=== PATIENT | female | born 1955 | race African-American/Black ===

== ENCOUNTER 2019-03-27 20:03 | Inpatient (IN) ==
[2019-03-27] MEDS ORDERED: SODIUM CHLORIDE 0.9% 500 ML IV STA (20:27)
[2019-03-27] MEDS ORDERED: methylPREDNISolone SOD SUC 125 MG/2 ML VIAL IV STA (20:28)
[2019-03-27] MEDS ORDERED: ONDANSETRON 4 MG/2 ML VIAL IV STA (20:30)
[2019-03-27] MEDS ORDERED: MEPERIDINE 50 MG/1 ML VIAL IV STA (20:30)
[2019-03-27 20:44] LABS: Basophils % 0.2 % (0.0-0.8); Eosinophils # 0.1 10*3/uL (0.0-0.87); Eosinophils % 0.8 % (0.00-10.9); Hematocrit 27.2 VOL% (35.7-47.0); Hemoglobin 8.4 GM/DL (12.0-16.0); Immature Granulocytes % 1.1 %; Immature Granulocytes Absolute 0.15 #; Lymphocytes # 1.4 10*3/uL (1.4-4.0); Lymphocytes % 10.2 % (21.3-54.2); Mean Corpuscular HGB Conc 30.9 GM/DL (32-36); Mean Corpuscular Volume 60.9 FL (87-102); Mean Platelet Volume 8.4 FL (9.6-12.0); Monocytes % 8.1 % (1.7-12.7); NRBC # 0.02 10*3/uL; Neutrophils % 79.6 % (38.7-73.9); Platelet Count 686 T/CUMM (130-400); Red Blood Count 4.47 MC/CUMM (3.8-5.5); Red Cell Distribution Width 20.4 % (9.3-17.3); White Blood Count 13.9 T/CUMM (4-12)
[2019-03-27] MEDS ORDERED: MEPERIDINE 25 MG/1 ML VIAL ONE (20:44)
[2019-03-27 21:17] LABS: Alanine Aminotransferase 15 U/L (13-56); Albumin 2.6 G/DL (3.4-5.0); Alkaline Phosphatase 99 U/L (45-117); Aspartate Amino Transferase 10 U/L (0-37); Blood Urea Nitrogen 12 MG/DL (7-18); Calcium 9.2 MG/DL (8.5-10.1); Glucose 234 MG/DL (74-106); Osmolality,Calculated 282.7 MOS/KG (273-304); Total Protein 6.6 G/DL (6.4-8.3); Troponin I < 0.015 NG/ML (0.00-0.045)
[2019-03-27] MEDS ORDERED: KETOROLAC 30 MG/1 ML VIAL IV STA (22:19)
[2019-03-27 22:38] LABS: Apearance,Urine Slightly Hazy (Clear); Bacteria,Urine Occasional /HPF (Few); Bilirubin,Urine Negative (Negative); Blood, Urine Moderate mg/dL (Negative); Glucose,Urine (UA) Negative (Negative); Hyaline Casts,Urine 1 /LPF (0-3); Ketones,Urine Negative (Negative); Mucus,Urine Occasional /LPF (Occasional); Nitrite,Urine Negative (Negative); Protein,Urine Negative; RBC,Urine 14 /HPF (0-4); Squamous Epithelial Cell,Urine Occasional /HPF (0-10); Urine Color Yellow (Yellow); Urine Specific Gravity 1.009 (1.001-1.035); Urine Urobilinogen < 2.0 EU/DL (0.2-1.0); WBC,Urine 56 /HPF (0-6)
[2019-03-27 22:42] LABS: Barbiturates Screen,Urine Negative (Negative); Benzodiazepines Screen,Urine Negative (Negative); Cannabinoid Screen,Urine Negative (Negative); Opiate Screen,Urine Negative (Negative); Phencyclidine Screen,Urine Negative (Negative)
[2019-03-27] MEDS ORDERED: MORPHINE 4 MG/1 ML VIAL IV PRN (23:23)
[2019-03-27] MEDS ORDERED: GLUCAGON 1 MG VIAL IM PRN (23:23)
[2019-03-27] MEDS ORDERED: DEXTROSE 50% 25 GM/50 ML SYRINGE IV PRN (23:23)
[2019-03-27] MEDS ORDERED: ONDANSETRON 4 MG/2 ML VIAL IV PRN (23:23)
[2019-03-27] MEDS ORDERED: cefTRIAXone 2,000 MG in SYRINGE 1 EACH IV SCH (23:30)
[2019-03-27] MEDS ORDERED: LOPERAMIDE 2 MG CAPSULE PO PRN (23:31)
[2019-03-28] MEDS: cefTRIAXone 2,000 MG in SYRINGE 1 EACH IV SCH ×2 (01:18→23:34)
[2019-03-28] MEDS: SODIUM CHLORIDE 0.9% 1,000 ML IV SCH ×3 (01:18→19:40)
[2019-03-28] MEDS: FERROUS GLUCONATE 324 MG TABLET PO SCH ×3 (01:25→22:35)
[2019-03-28] MEDS: rOPINIRole 1 MG TABLET PO SCH ×2 (01:25→22:36)
[2019-03-28 05:20] LABS: Basophils % 0.1 % (0.0-0.8); Hemoglobin 7.2 GM/DL (12.0-16.0); Immature Granulocytes Absolute 0.11 #; Lymphocytes # 0.6 10*3/uL (1.4-4.0); Lymphocytes % 5.1 % (21.3-54.2); Mean Corpuscular HGB Conc 31.3 GM/DL (32-36); Mean Corpuscular Volume 61.3 FL (87-102); Mean Platelet Volume 8.6 FL (9.6-12.0); Monocytes % 0.9 % (1.7-12.7); Neutrophils % 92.9 % (38.7-73.9); Platelet Count 586 T/CUMM (130-400); Red Blood Count 3.75 MC/CUMM (3.8-5.5); Red Cell Distribution Width 20.1 % (9.3-17.3)
[2019-03-28 05:34] LABS: Calcium 8.6 MG/DL (8.5-10.1); Osmolality,Calculated 283.7 MOS/KG (273-304)
[2019-03-28 05:48] LABS: Anisocytosis 1+; Band Neutrophils 1 % (0-10); Lymphocytes 5 % (20-55); Myelocytes 1 %; Segmented Neutrophils 93 % (50-85); Total Cells Counted 100
[2019-03-28 05:49] LABS: Acanthocytes Few; Hypochromasia 1+; Ovalocytes Few; Platelet Estimate Adequate
[2019-03-28] MEDS ORDERED: SACCHAROMYCES BOULARDII 250 MG PO SCH (09:00)
[2019-03-28] MEDS: traMADol 50 MG TABLET PO PRN ×2 (09:08→18:31)
[2019-03-28] MEDS: FOLIC ACID 1 MG TABLET PO SCH (09:09)
[2019-03-28] MEDS: LOSARTAN 50 MG TABLET PO SCH (09:09)
[2019-03-28] MEDS: CHOLECALCIFEROL 5,000 UNIT TABLET PO SCH (09:09)
[2019-03-28] MEDS: CALCIUM (CARBONATE)/VITAMIN D 600 MG-400 UNIT TABLET PO SCH ×2 (09:09→09:20)
[2019-03-28] MEDS: ENOXAPARIN 40 MG/0.4 ML SYRINGE SUBCUT SCH (09:09)
[2019-03-28] MEDS: PANTOPRAZOLE 40 MG TABLET PO SCH (09:09)
[2019-03-28] MEDS: MONTELUKAST 10 MG TABLET PO SCH (09:09)
[2019-03-28] MEDS: METOPROLOL TARTRATE 25 MG TABLET PO SCH (09:10)
[2019-03-28] MEDS: predniSONE 10 MG TABLET PO SCH (09:10)
[2019-03-28] MEDS: INSULIN REGULAR 100 UNIT/ML SUBCUT SCH ×4 (09:13→22:39)
[2019-03-28] MEDS ORDERED: SODIUM CHLORIDE 0.9% 1,000 ML IV PRN (09:21)
[2019-03-28 09:41] LABS: Ferritin 139.2 ng/ml (8-252)
[2019-03-28 10:23] LABS: Folate 23.4 NG/ML (5.4-24.0)
[2019-03-28] MEDS ORDERED: FAMOTIDINE 20 MG TABLET PO PRN (14:34)
[2019-03-28] MEDS: IRON SUCROSE 200 MG in SODIUM CHLORIDE 0.9% 100 ML IV SCH (18:52)
[2019-03-28 19:12] LABS: Hematocrit 29.3 VOL% (35.7-47.0); Hemoglobin 9.1 GM/DL (12.0-16.0)
[2019-03-29] MEDS: SODIUM CHLORIDE 0.9% 1,000 ML IV SCH ×2 (05:35→16:37)
[2019-03-29 05:44] LABS: Basophils % 0.1 % (0.0-0.8); Eosinophils # 0.1 10*3/uL (0.0-0.87); Eosinophils % 0.6 % (0.00-10.9); Hematocrit 26.9 VOL% (35.7-47.0); Hemoglobin 8.6 GM/DL (12.0-16.0); Immature Granulocytes Absolute 0.12 #; Lymphocytes # 1.7 10*3/uL (1.4-4.0); Lymphocytes % 13.8 % (21.3-54.2); Mean Corpuscular Volume 66.7 FL (87-102); Mean Platelet Volume 8.4 FL (9.6-12.0); Monocytes % 6.6 % (1.7-12.7); NRBC # 0.02 10*3/uL; Neutrophils % 77.9 % (38.7-73.9); Platelet Count 455 T/CUMM (130-400); Red Blood Count 4.03 MC/CUMM (3.8-5.5); Red Cell Distribution Width 24.7 % (9.3-17.3); White Blood Count 12.2 T/CUMM (4-12)
[2019-03-29 06:06] LABS: Calcium 8.4 MG/DL (8.5-10.1)
[2019-03-29 06:46] LABS: Anisocytosis 1+; Hypochromasia Slight; Platelet Estimate Normal; Poikilocytosis 1+
[2019-03-29 06:47] LABS: Polychromasia Slight; Target Cells Few; Tear Drop Cells Few
[2019-03-29] MEDS: INSULIN REGULAR 100 UNIT/ML SUBCUT SCH ×4 (08:33→21:22)
[2019-03-29] MEDS: ENOXAPARIN 40 MG/0.4 ML SYRINGE SUBCUT SCH (09:22)
[2019-03-29] MEDS: PANTOPRAZOLE 40 MG TABLET PO SCH (09:23)
[2019-03-29] MEDS: predniSONE 10 MG TABLET PO SCH (09:23)
[2019-03-29] MEDS: MONTELUKAST 10 MG TABLET PO SCH (09:23)
[2019-03-29] MEDS: METOPROLOL TARTRATE 25 MG TABLET PO SCH (09:23)
[2019-03-29] MEDS: FOLIC ACID 1 MG TABLET PO SCH (09:23)
[2019-03-29] MEDS: IRON SUCROSE 200 MG in SODIUM CHLORIDE 0.9% 100 ML IV SCH (09:24)
[2019-03-29] MEDS: CHOLECALCIFEROL 5,000 UNIT TABLET PO SCH (09:24)
[2019-03-29] MEDS: FERROUS GLUCONATE 324 MG TABLET PO SCH ×2 (09:24→21:55)
[2019-03-29] MEDS: CALCIUM (CARBONATE)/VITAMIN D 600 MG-400 UNIT TABLET PO SCH (09:24)
[2019-03-29] MEDS: LOSARTAN 50 MG TABLET PO SCH (09:24)
[2019-03-29] MEDS: traMADol 50 MG TABLET PO PRN ×2 (09:28→18:31)
[2019-03-29] MEDS ORDERED: POTASSIUM CHLORIDE 20 MEQ TABLET PO ONE (11:50)
[2019-03-29] MEDS: rOPINIRole 1 MG TABLET PO SCH (21:55)
[2019-03-30] MEDS: cefTRIAXone 2,000 MG in SYRINGE 1 EACH IV SCH (00:07)
[2019-03-30] MEDS: SODIUM CHLORIDE 0.9% 1,000 ML IV SCH ×2 (02:56→12:31)
[2019-03-30] MEDS: traMADol 50 MG TABLET PO PRN ×2 (03:24→09:51)
[2019-03-30 07:59] LABS: Basophils % 0.1 % (0.0-0.8); Eosinophils # 0.2 10*3/uL (0.0-0.87); Eosinophils % 2.5 % (0.00-10.9); Hematocrit 29.3 VOL% (35.7-47.0); Hemoglobin 9.1 GM/DL (12.0-16.0); Immature Granulocytes % 1.1 %; Immature Granulocytes Absolute 0.11 #; Lymphocytes # 1.5 10*3/uL (1.4-4.0); Lymphocytes % 15.7 % (21.3-54.2); Mean Corpuscular HGB Conc 31.1 GM/DL (32-36); Mean Platelet Volume 8.1 FL (9.6-12.0); Monocytes % 6.7 % (1.7-12.7); NRBC # 0.02 10*3/uL; Neutrophils % 73.9 % (38.7-73.9); Platelet Count 446 T/CUMM (130-400); Red Blood Count 4.31 MC/CUMM (3.8-5.5); Red Cell Distribution Width 25.3 % (9.3-17.3); White Blood Count 9.8 T/CUMM (4-12)
[2019-03-30 08:24] LABS: Calcium 8.7 MG/DL (8.5-10.1); Osmolality,Calculated 279.3 MOS/KG (273-304); Platelet Estimate Normal
[2019-03-30] MEDS: INSULIN REGULAR 100 UNIT/ML SUBCUT SCH ×2 (08:25→12:31)
[2019-03-30 08:26] LABS: Anisocytosis 1+
[2019-03-30] MEDS ORDERED: POTASSIUM CHLORIDE 20 MEQ TABLET PO SCH (09:00)
[2019-03-30] MEDS: ENOXAPARIN 40 MG/0.4 ML SYRINGE SUBCUT SCH (09:49)
[2019-03-30] MEDS: MONTELUKAST 10 MG TABLET PO SCH (09:49)
[2019-03-30] MEDS: FOLIC ACID 1 MG TABLET PO SCH (09:49)
[2019-03-30] MEDS: LOSARTAN 50 MG TABLET PO SCH (09:49)
[2019-03-30] MEDS: FERROUS GLUCONATE 324 MG TABLET PO SCH (09:49)
[2019-03-30] MEDS: METOPROLOL TARTRATE 25 MG TABLET PO SCH (09:50)
[2019-03-30] MEDS: predniSONE 10 MG TABLET PO SCH (09:50)
[2019-03-30] MEDS: PANTOPRAZOLE 40 MG TABLET PO SCH (09:50)
[2019-03-30] MEDS: CHOLECALCIFEROL 5,000 UNIT TABLET PO SCH (09:50)
[2019-03-30] MEDS: CALCIUM (CARBONATE)/VITAMIN D 600 MG-400 UNIT TABLET PO SCH (09:52)
[2019-03-30] MEDS: IRON SUCROSE 200 MG in SODIUM CHLORIDE 0.9% 100 ML IV SCH (10:58)
[2019-03-30 13:49] VITALS: BP 144/74
[2019-03-30] MEDS ORDERED: CIPROFLOXACIN 500 MG TABLET PO SCH (14:00)
== END 2019-03-30 16:43 | disposition home or self-care (01) | DRG 690 ==
LOC: EDBD → EDUNIT# → N.ED 20:03 → N.EDINP 23:23 → SUATTDRO 23:23 → N.TELEN 23:41
PROVIDERS: ADMIT Internal Medicine Nephrology; ATTEND Internal Medicine